=== PATIENT | female | born 1995 | race Caucasian/White ===

== ENCOUNTER 2018-10-24 21:13 | Emergency (ER) | payer OTHER ==
[2018-10-24 21:19] VITALS: BP 148/94
[2018-10-24] MEDS ORDERED: ALBU8.5H IH (21:21)
[2018-10-24] MEDS ORDERED: BIRTH CONTROL (21:21)
--- NOTE | 2018-10-24 21:32 | ER Report ---
History and Physical Time Seen By MD: 21:32 Hx. of Stated Complaint: PT REPORTS GETTING SICK YESTERDAY. PT REPORTS CONGESTION AND SOB. HPI/ROS CHIEF COMPLAINT: Upper respiratory infection HISTORY OF PRESENT ILLNESS: 23-year-old female with a history of asthma presents ambulatory to the ER. She reports she's been sick since yesterday. She woke up this morning feeling quite horrible. She has a productive cough of yellowish sputum. She's had some intermittent fevers. She's not checked her temperature actually. She notes clear rhinitis and a sore throat. She notes some chest pain with deep inspiration. Patient denies nausea and vomiting. Patient states her inhalers do not seem to be working. She has a persistent cough. REVIEW OF SYSTEMS: Respiratory: As above Cardiovascular: No chest pain, no palpitations. Gastrointestinal: No vomiting, no abdominal pain. Musculoskeletal: No back pain. Allergies: Coded Allergies: No Known Drug Allergies (Unverified , 10/24/18) Home Meds Active Scripts Promethazine HCl/Codeine (Prometh-Codein 6.25-10 mg/5 ml) 5 Ml Syrup, 5-10 ML PO Q4H PRN for COUGH, #120 Prov:MARJ VALENTINE DO 10/24/18 Reported Medications [ Control] No Conflict Check 10/24/18 Albuterol Sulfate 90 Mcg/Act (PROAIR HFA 90 MCG/ACT) 8.5 Gm Hfa.aer.ad, 1-2 PUFF IH 3-4XD, INHALER 10/24/18 Reviewed Nurses Notes: Yes Old Medical Records Reviewed: Yes Hx Substance Use Disorder: No Hx Alcohol Use: No Constitutional Vital Sign - Last 24 Hours 10/24/18 10/24/18 10/24/18 10/24/18 21:17 21:19 21:28 21:58 Temp 99.6 Pulse 115 102 Resp 14 B/P (MAP) 148/94 (112) 148/94 Pulse Ox 93 91 92 O2 Delivery Room Air 10/24/18 10/24/18 22:13 22:28 Pulse 102 106 Pulse Ox 92 92 Physical Exam Vital signs stable, low-grade fever 99.6, tachycardia General Appearance: patient is alert, has no immediate need for airway protection and no current signs of toxicity. Mild distress, facial flushing HEENT: Pupils equal and round no injection. TMs normal, oropharynx with moderate erythema, mild tonsillar hypertrophy, trace exudate Respiratory: Chest is non tender, lungs are clear to auscultation. No wheezing or rails Cardiac: regular rate and rhythm Gastrointestinal: Abdomen is soft and non tender, no masses, bowel sounds normal. Musculoskeletal: Neck: Neck is supple and non tender. Extremities have full range of motion and are non tender. Skin: No rashes or lesions. DIFFERENTIAL DIAGNOSIS: After history and physical exam differential diagnosis was considered for pneumonia, bronchitis, upper respiratory infection, sinusitis, otitis media, pharyngitis, influenza Medical Decision Making Data Points Laboratory Hematology Test 10/24/18 21:25 Influenza Virus Type A (PCR) Negative (NEGATIVE) Influenza Virus Type B (PCR) Negative (NEGATIVE) Group A Streptococcus (PCR) Negative (NEGATIVE) Chemistry Test 10/24/18 21:25 Influenza Virus Type A (PCR) Negative (NEGATIVE) Influenza Virus Type B (PCR) Negative (NEGATIVE) Group A Streptococcus (PCR) Negative (NEGATIVE) ED Course/Re-evaluation ED Course Patient was minute to an examination room. H&P was done. The differential diagnoses was considered. Patient with acute onset of upper respiratory symptoms which becoming progressively worse over 24-36 hours. She notes productive cough of yellow sputum. Some intermittent low-grade fevers. She she notes exposure to ill contacts. She works at a daycare center. She has a history of asthma. Her asthma symptoms do not seem to be exacerbated. She feels her inhalers are not working. Her pulse ox is normal and there is no wheezing on auscultation of the lungs. A rapid flu and strep were performed which were unremarkable. Results are discussed with the patient. We discussed conservative management of her symptoms with DayQuil, NyQuil and ibuprofen. Patient's given a prescription for Phenergan with codeine syrup to suppress her cough to allow her to rest and sleep. Patient advised to follow-up with primary care if unimproved in 3-5 days. Decision to Disposition Date: October 24, 2018 Decision to Disposition Time: 22:28 Depart Departure Latest Vital Signs Vital Signs Date Time Temp Pulse Resp B/P (MAP) Pulse Ox O2 Delivery O2 Flow Rate FiO2 10/24/18 22:28 106 92 10/24/18 21:19 99.6 14 148/94 Room Air Impression: Primary Impression: Viral upper respiratory infection Additional Impression: History of asthma Condition: Improved Disposition: HOME OR SELF-CARE New Scripts Promethazine HCl/Codeine (Prometh-Codein 6.25-10 mg/5 ml) 5 Ml Syrup 5-10 ML PO Q4H PRN for COUGH, #120 Prov: MARJ VALENTINE DO 10/24/18 Patient Instructions: Upper Respiratory Infection (ED) Problem Qualifiers MARJ VALENTINE DO October 24, 2018 21:32
[2018-10-24] MEDS ORDERED: PROMETH/COD SYRP 6.25-10MG/5ML PO ONE (22:30)
[2018-10-24] MEDS ORDERED: PROM5SYR PO (22:30)
== END 2018-10-24 22:43 | disposition home or self-care (01) ==
LOC: ER 21:33
DX: J06.9 Acute upper respiratory infection, unspecified (principal); J45.909 Unspecified asthma, uncomplicated
CPT/HCPCS: 87502; 87653; 99283